=== PATIENT | male | born 1955 | race Caucasian/White ===

== ENCOUNTER 2020-08-11 17:14 | Inpatient (IN) ==
--- NOTE | 2020-08-11 17:22 | Internal Med History&Physical ---
HPI History of Present Illness Patient information: Note initiated : 08/11/20 at 5:16 pm Service Date, if different from initiated Date: [] Patient: Mark Madison 65 y/o M admitted on for acute renal failure. Chief Complaint: [] History of present illness: Mr. Madison is a 65 year old M 65-year-old male who was sent to the ED from the wound care clinic at [facility] for diabetic wounds because he was potentially systolics in 70s and 80s and he had a high blood sugar. Patient denied any pains or complaints states he feels essentially normal. Of note however, he have dementia and is poor historian. Work-up in the ER revealed acute kidney injury with creatinine 1.7. He had mild hyponatremia. He also elevated blood glucose of 469. But his beta hydroxy butyrate was negative. Received 2 L of IV fluid in ED. Not hypoxic. Case discussed with user interface developer Dr. Renee. [facility] having staffing issues and patient was transferred to [facility]. Review of Systems: Positive as above. Denies headache/fever/chills/nausea/vomiting/chest or abdominal pain/cough/dyspnea/diarrhea. Remaining 10 point review of system reviewed negative PFSH PFSH All Active Problems (Updated 02/24/17 @ 14:34 by [facility]) CHF (congestive heart failure), NYHA class III (Acute) Edema due to congestive heart failure (Acute) Medical History (Updated 02/24/17 @ 14:34 by [employer] [place]) CHF (congestive heart failure), NYHA class III (Acute) Edema due to congestive heart failure (Acute) Social History (Updated 08/11/20 @ 17:18 by Louis Schaefer DO) smoking status: Current every day smoker additional history: Past medical history: Diabetes Dementia Hypertension CAD with stent Peripheral arterial disease Depression Tobacco abuse Obesity Past surgical history: Left toe amputation Cholecystectomy C spine surgery Family: Father had heart disease. Brother with heart disease Social history: He is a chronic smoker 1 pack/day Lives with daughter. MEDS/ALLERGIES Home Medications and Allergies Home Medications Medication Instructions Recorded Confirmed Type aspirin [Adult Low Dose Aspirin EC] 81 mg PO DAILY 07/05/16 07/05/16 History furosemide 40 mg PO DAILY #5 tab 07/05/16 Rx insulin glargine [Lantus] 20 unit SQ HS 07/05/16 07/05/16 History Allergies Allergy/AdvReac Type Severity Reaction Status Date / Time sulfamethoxazole Allergy Severe LIP Verified 07/05/16 09:11 [From BACTRIM] SWELLING trimethoprim [From BACTRIM] Allergy Severe LIP Verified 07/05/16 09:11 SWELLING vancomycin [VANCOMYCIN] Allergy Severe Swollen Verified 07/05/16 09:11 Tongue morphine Allergy Intermediate Itching Verified 07/05/16 09:11 EXAM Constitutional Exam: General: Alert, Awake, No acute Distress Eyes/N/T: EOMI, PERRL, dry MM Head/Neck: neck supple, normocephalic atraumatic CV: RRR, No murmurs, normal s1/s2 Pulm: Clear b/l, no wheezing/rhonchi/rales Abd: soft, nontender, +BS x4 Ext: no clubbing/cyanosis/edema. Left foot in dressings from recent wound care dressing change Neuro: Alert, no focal deficits, moves all extremities, CN 2-12 grossly intact, symmetrical strength b/l upper/lower, sensations intact b/l upper/lower Skin: warm/dry A/P Narrative A/P Narrative: A: *ARLINE: likely BP meds and diuretics with increased fluid need from hyperglycemia *Hypotension: responded to IVF's *DM w/Hyperglycemia and foot wounds: -a1c *pseduohyponatremia: 2/2 above *Met acidosis: 2/2 above *CAD w/stent & PAD w/stent: *HTN: *Dementia: *Depression: *Tobacco abuse: P: -IVF, i/o -Nephrology consulted -UA -Hold BB/ACEI/diuretic meds for low BP & ARLINE -basal and SSI -cont ASA/Plavix/Statin -wound care -Smoking cessation counseling -pt/ot -ppx: Heparin Time Spent With Patient Time: Total time spent is greater than 50% in coordination of care (as documented) at patient's floor/unit and/or counseling patient:
[2020-08-11] MEDS ORDERED: DEXTROSE 50% 50 ML VIAL IV PRN (17:25)
[2020-08-11] MEDS ORDERED: SENNOSIDES 1 TABLET PO PRN (17:25)
[2020-08-11] MEDS ORDERED: MAGNESIUM SULFATE 2 GM/50 ML BAG IV PRN (17:25)
[2020-08-11] MEDS ORDERED: POTASSIUM CHLORIDE 20 MEQ TABLET PO PRN ×2 (17:25)
[2020-08-11] MEDS ORDERED: DEXTROSE 31 GM ORAL.SUSP PO PRN (17:25)
[2020-08-11] MEDS ORDERED: POTASSIUM CHLORIDE 40 MEQ in DEXTROSE 5% IN WATER 500 ML IV PRN (17:25)
[2020-08-11] MEDS ORDERED: ONDANSETRON 4 MG/2 ML VIAL IV PRN (17:25)
[2020-08-11] MEDS ORDERED: IPRATROPIUM/ALBUTEROL 3 ML AMPUL.NEB NEB PRN (17:25)
[2020-08-11] MEDS ORDERED: ACETAMINOPHEN 325 MG TABLET PO PRN (17:25)
[2020-08-11] MEDS ORDERED: LACTATED RINGERS 1,000 ML IV SCH (17:30)
--- NOTE | 2020-08-11 19:56 | Nephrology Procedure Note ---
Procedure Note Patient information: Note initiated : 08/11/20 at 7:52 pm Service Date, if different from initiated Date: [] Patient: Mark Madison 65 y/o M admitted on 08/11/20 for acute renal failure. Chief Complaint: [Referred from wound care to [facility] ED then to [facility] ICU for ARF] Patient is a 65-year-old gentleman with with left foot diabetic wound that is being cared for by wound care. He reported to the staff that for the past 1 to 2 weeks his blood sugars have been running over 400. His blood pressure was ar ound 100/60 he was not diaphoretic not complaining of chest pain not febrile but because of the lowish blood pressure he was sent to [facility] emergency department for further evaluation. Venous blood gas pH 7.27 PCO2 39 PO2 60 total CO2 18 Sodium 129 potassium 4.3 chloride 94 CO2 18 anion gap 17 Glucose 469 BUN 34 creatinine is 3.7 Calcium 10.1 total bilirubin 0.2 AST 13 ALT 13 alk phos 121 total protein 7.0 albumin 4.1 Beta hydroxybutyrate 0.13 White count 10,100 eosinophils 1.9% Hemoglobin 12.9 hematocrit 39% Platelet count 164,000 Urinalysis had a specific gravity of 1.029, negative protein, 4+ glucose, negative ketones, negative dipstick, no cellular casts Review of prior labs show a creatinine of 1.0 17 days prior to admission tonight. At [facility] emergency department patient received a liter of IV fluids and 15 units of insulin subcutaneously. Initial blood pressure was 109/60 with a pulse of 97 and O2 sat of 97% Medications include metoprolol succinate 25 mg every morning Lantus insulin 15 units daily Lipitor 20 mg at bedtime NovoLog sliding scale Bactrim DS 1 p.o. daily starting on 07/24/2020 Lisinopril 5 mg every morning Aspirin 81 mg, Lovenox 40 mg subcu, clopidogrel 75 mg nightly Given the above it is my believe this patient has acute renal failure from a combination of mild hypotension, lisinopril, and the straw that broke the cam el's back was Bactrim DS. Uncontrolled hyperglycemia would lead to ECF volume contraction by an osmotic diuresis Hyponatremia is in response to hyperglycemia to maintain osmolarity There is no evidence of diabetic ketoacidosis. The mild anion gap acidosis is probably related to either increase lactate production or acute renal failure or the combination of both
[2020-08-11] MEDS: INSULIN LISPRO 1 UNIT/0.01 ML UNIT SQ SCH (20:17)
--- NOTE | 2020-08-11 20:17 | Nephrology Consult Note ---
HPI Data of Consult Primary Care Provider: Ritesh Flor Consult Narrative Patient Information: Note initiated : 08/11/20 at 8:17 pm Service Date, if different from initiated Date: [] Patient: Mark Madison 65 y/o M admitted on 08/11/20 for acute renal failure. Chief Complaint: [ARF] cc:: CC: Louis Schaefer Note initiated : 08/11/20 at 7:52 pm Service Date, if different from initiated Date: [] Patient: Mark Madison 65 y/o M admitted on 08/11/20 for acute renal failure. Chief Complaint: [Referred from wound care to [facility] ED then to [facility] ICU for ARF] Patient is a 65-year-old gentleman with with left foot diabetic wound that is being cared for by wound care. He reported to the staff that for the past 1 to 2 weeks his blood sugars have been running over 400. His blood pressure was around 100/60 he was not diaphoretic not complaining of chest pain not febrile but because of the lowish blood pressure he was sent to [facility] emergency department for further evaluation. Venous blood gas pH 7.27 PCO2 39 PO2 60 total CO2 18 Sodium 129 potassium 4.3 chloride 94 CO2 18 anion gap 17 Glucose 469 BUN 34 creatinine is 3.7 Calcium 10.1 total bilirubin 0.2 AST 13 ALT 13 alk phos 121 total protein 7.0 albumin 4.1 Beta hydroxybutyrate 0.13 White count 10,100 eosinophils 1.9% Hemoglobin 12.9 hematocrit 39% Platelet count 164,000 Urinalysis had a specific gravity of 1.029, negative protein, 4+ glucose, negative ketones, negative dipstick, no cellular casts Review of prior labs show a creatinine of 1.0 17 days prior to admission tonight. At [facility] emergency department patient received a liter of IV fluids and 15 units of insulin subcutaneously. Initial blood pressure was 109/60 with a pulse of 97 and O2 sat of 97% Medications include metoprolol succinate 25 mg every morning Lantus insulin 15 units daily Lipitor 20 mg at bedtime NovoLog sliding scale Bactrim DS 1 p.o. daily starting on 07/24/2020 Lisinopril 5 mg every morning Aspirin 81 mg, Lovenox 40 mg subcu, clopidogrel 75 mg nightly Given the above it is my believe this patient has acute renal failure from a combination of mild hypotension, lisinopril, and the straw that broke the camel's back was Bactrim DS. Uncontrolled hyperglycemia would lead to ECF volume contraction by an osmotic diuresis Hyponatremia is in response to hyperglycemia to maintain osmolarity There is no evidence of diabetic ketoacidosis. The mild anion gap acidosis is probably related to either increase lactate production or acute renal failure or the combination of both Review of Systems ROS unobtainable: due to mental status Constitutional Constitutional: Present as per HPI, lethargy and weakness EENT Eyes: Present as per HPI and decreased night vision Ears: Present as per HPI and decreased hearing Nose, mouth and throat: Present headache(s) and post-nasal drip Cardiovascular Cardiovascular: Present as per HPI and syncope; Absent chest pain Respiratory Respiratory: Present as per HPI, cough, chest congestion and change in phlegm color (yellow) Gastrointestinal Gastrointestinal: Present as per HPI, excessive flatus, loose stools and nausea Musculoskeletal Musculoskeletal: Present atrophy and numbness Integumentary Integumentary: Present as per HPI and sores; Absent rash and jaundice Neurological Neurological: Present as per HPI, abnormal speech (slow), confusion, memory loss, numbness and weakness; Absent focal weakness Psychiatric Psychiatric: Present as per HPI and confusion Hematologic/Lymphatic Hematologic/Lymphatic: Present easy bruising Allergic/Immunologic Allergic/Immunologic: Present as per HPI PFSH PFSH All Active Problems (Updated 08/11/20 @ 21:04 by Tye Renee MD) DM (diabetes mellitus) type II uncontrolled, periph vascular disorder (Chronic) Acute prerenal azotemia (Acute) CHF (congestive heart failure), NYHA class III (Acute) Edema due to congestive heart failure (Acute) Medical History (Updated 08/11/20 @ 21:04 by Tye Renee MD) CHF (congestive heart failure), NYHA class III (Acute) Edema due to congestive heart failure (Acute) Social History (Updated 08/11/20 @ 17:18 by Louis Schaefer DO) smoking status: Current every day smoker additional history: Past medical history: Diabetes Dementia Hypertension CAD with stent Peripheral arterial disease Depression Tobacco abuse Obesity Past surgical history: Left toe amputation Cholecystectomy C spine surgery Family: Father had heart disease. Brother with heart disease Social history: He is a chronic smoker 1 pack/day Lives with daughter. MEDS/ALLERGIES Home Medications and Allergies Home Medications Medication Instructions Recorded Confirmed Type aspirin [Adult Low Dose Aspirin EC] 81 mg PO DAILY 07/05/16 07/05/16 History furosemide 40 mg PO DAILY #5 tab 07/05/16 Rx insulin glargine [Lantus] 20 unit SQ HS 07/05/16 07/05/16 History Allergies Allergy/AdvReac Type Severity Reaction Status Date / Time sulfamethoxazole Allergy Severe LIP Verified 07/05/16 09:11 [From BACTRIM] SWELLING trimethoprim [From BACTRIM] Allergy Severe LIP Verified 07/05/16 09:11 SWELLING vancomycin [VANCOMYCIN] Allergy Severe Swollen Verified 07/05/16 09:11 Tongue morphine Allergy Intermediate Itching Verified 07/05/16 09:11 Physical Examination Vital Signs Vital signs: Temp Pulse Resp BP Pulse Ox 35.9 C L 81 17 141/80 99 08/11/20 19:29 08/11/20 19:31 08/11/20 19:31 08/11/20 19:31 08/11/20 19:31 General Appearance General appearance: obese, chronically ill and fatigue EENT EENT: ATNC, PERRL, mucous membranes dry and hearing diminished Neck Neck: no JVD, no carotid bruit and supple Respiratory Respiratory: no kyphosis, wheezing (expiratory), course breath sounds and rhonchi Cardiovascular Cardiology: no murmurs, no rub, no gallops, edema, regular rhythm, normal S1 and normal S2 Gastrointestinal Gastrointestinal: normoactive bowel sounds, no guarding and distended Integumentary Integumentary: cool/clammy and ecchymotic Neurologic Neurologic: no focal deficit, no asterixis, confused, disoriented, strength 5/5 (diffuse weakness), CN 3-12 intact and upper extremity weakness Musculoskeletal Musculoskeletal: deformities (amp left great toe), no cyanosis, no clubbing and decreased ROM Psychiatric Psychiatric: depressed A/P Assessment and plan (1) Acute prerenal azotemia: Status: Acute Comment: Mid -July 2020 SCr 1.0 mg/dl. ARF with SCr 3's in setting of lisinopril 5 mg qD and 2 week course of Bactrim DS (despite allergy warning) starting mid July 2020 leading to decreased autoregulation of renal blood flow, decreased tubular secretion of Creatinine (triamterene effect) and hypotension (albeit mild) (2) DM (diabetes mellitus) type II uncontrolled, periph vascular disorder: Status: Chronic Comment: Sadly, this patient has NO IDEA of his insulin Type, dosing, blood sugar patters and relies on his daughter to adjust, dose insulin and determine glucose levels. Narrative A/P Narrative: 1. No NSAIDs 2. Volume expand done with NS at OSH, appears hemodynamically improved. 3. Suspect acute pre-renal azotemia Check FeNa, urine eos, urine protein/creatinine ratio and urine uric acid/creatinine ratio. No NSAIDs, ACEi or ARB, Bactrim Trend labs Anticipate renal recovery in 24-72 hours. 4. DM Could easily double lanus to 30 units qHS 5 units humalog for mealtime coverage plus 0-10 units of humalog aC and qHS for correction factor based on BS. 5. Pseudohyponatremia Should correct with control of BS. 6. Wound care Follow up with his putpatient wound care facility 7. 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
[2020-08-11] MEDS: 0.9 % SODIUM CHLORIDE 10 ML SYRINGE IV SCH (20:18)
[2020-08-11] MEDS: LACTATED RINGERS 1,000 ML IV SCH (20:18)
[2020-08-11 22:21] LABS: Appearance,Urine CLEAR (Clear); Bilirubin,Urine Negative (Negative); Color,Urine YELLOW; Culture Indicated,Urine No; Glucose,Urine (UA) >=500 mg/dL (Negative); Ketones,Urine Negative (Negative); Leukocyte Esterase,Urine Negative /ug (Negative); Mucus,Urine FEW /hpf; Nitrate,Urine Negative (Negative); Protein,Urine Negative (Negative); Urine Blood Negative (Negative); Urine Hyaline Cast 7 /lph (0-2); Urine RBC 0 /hpf (0-1); Urine Squamous Epithelial Cell 0 /hpf (0-4); Urine WBC 1 /hpf (0-4); Urobilinogen,Urine Negative
[2020-08-11 22:38] LABS: Uric Acid,Urine Random 14.2 mg/dL (37.0-92.0)
[2020-08-11] MEDS: HEPARIN 5,000 UNIT/ML VIAL SQ SCH (22:40)
[2020-08-11] MEDS: DOCUSATE SODIUM 100 MG CAPSULE PO SCH (22:41)
[2020-08-12] MEDS: INSULIN LISPRO 1 UNIT/0.01 ML UNIT SQ SCH ×6 (04:24→20:20)
[2020-08-12] MEDS: 0.9 % SODIUM CHLORIDE 10 ML SYRINGE IV SCH ×3 (05:56→20:17)
[2020-08-12 06:46] LABS: Estimated Average Glucose(eAG) 381 mg/dL; Hemoglobin A1C 14.9 % Hgb (4.0-6.0)
[2020-08-12 07:08] LABS: ALT/SGPT 12 U/L (<40); AST/SGOT 15 U/L (<40); Albumin 3.3 gm/dL (3.2-5.2); Albumin/Globulin Ratio 1.3 (1.0-2.3); Alkaline Phosphatase 87 U/L (39-117); Bilirubin,Direct < 0.2 mg/dL (<0.3); Bilirubin,Total 0.2 mg/dL (0.1-1.0); Blood Urea Nitrogen 21 mg/dL (8-23); Calcium 8.9 mg/dL (8.6-10.4); Carbon Dioxide 19 mmol/L (22-30); Chloride 110 mmol/L (96-108); Globulin 2.6 gm/dL (2.2-3.7); Glomerular Filtration Rate 41; Glucose 129 mg/dL (70-105); Lactate Dehydrogenase 149 U/L (135-225); Phosphorous 2.6 mg/dL (2.5-4.5); Triglycerides 152 mg/dL (<150); Uric Acid 6.5 mg/dL (2.5-8.0)
--- NOTE | 2020-08-12 07:28 | Internal Med Progress Note ---
SUBJECTIVE Subjective Patient information: Note initiated : 08/12/20 at 7:24 am Service Date, if different from initiated Date: [] Patient: Mark Madison 65 y/o M admitted on 08/11/20 for acute renal failure. Chief Complaint: [] Interval history: History of present illness: Mr. Madison is a 65 year old M 65-year-old male who was sent to the ED from the wound care clinic at [facility] for diabetic wounds because he was potentially systolics in 70s and 80s and he had a high blood sugar. Patient denied any pains or complaints states he feels es sentially normal. Of note however, he have dementia and is poor historian. Work-up in the ER revealed acute kidney injury with creatinine 1.7. He had mild hyponatremia. He also elevated blood glucose of 469. But his beta hydroxy butyrate was negative. Received 2 L of IV fluid in ED. Not hypoxic. Case discussed with steel sampler Dr. Renee. [facility] having staffing issues and patient was transferred to [facility]. 08/12 Slept well. No overnight events or new complaints. Creatinine same as yesterday. Was incontinent last night refused Luis. Discussed with the patient again this morning the need for Luis. Nursing clarifying home medications. Review of Systems: denies headache/fever/chills/nausea/vomiting/chest or abdominal pain/cough/dyspnea/diarrhea. Otherwise see above. Constitutional Vitals: Vital Signs Temp Pulse Resp BP Pulse Ox 98.1 F 92 H 20 99/65 98 08/12/20 04:02 08/12/20 04:02 08/12/20 04:02 08/12/20 04:02 08/12/20 04:02 Period Temp Pulse Resp BP Sys/Daryb Pulse Ox Last 24 Hr 96.7 F-98.7 F 81-94 16-21 90-164/50-113 95-100 Intake and Output 08/11/20 08/12/20 08/12/20 21:59 05:59 13:59 Intake Total 120 120 Output Total 625 1 Balance -505 119 Weight 70.579 kg 70.579 kg Intake & Output: Intake & Output 08/11/20 08/12/20 08/12/20 21:59 05:59 13:59 Intake Total 120 120 Output Total 625 1 Balance -505 119 Weight 70.579 kg 70.579 kg Intake: Oral 120 120 Output: Void Amount 625 # of times incontinent of urine 1 Other: Meal [place],crackers,peaches,juice Percent of Meal Consumed 100% Urine Appearance Clear Urine Color Dark Yellow Urine Odor Normal # of times incontinent of 1 Bowels Exam: General: Alert, Awake, No acute Distress Eyes/N/T: EOMI, Head/Neck: neck supple, CV: RRR, No murmurs, normal s1/s2 Pulm: Clear b/l, no wheezing/rhonchi/rales Abd: soft, nontender, +BS x4 Ext: no clubbing/cyanosis/edema. Left foot in dressings from recent wound care dressing change Neuro: Alert, no focal deficits, moves all extremities, Skin: warm/dry OBJ DATA Labs CBC & Chem 7: 08/12/20 05:42 08/12/20 05:42 Labs: Abnormal Lab Results 08/12/20 08/12/20 08/11/20 05:42 05:42 21:20 Chloride 110 H Carbon Dioxide 19 L Creatinine 1.7 H Glucose 129 H Hemoglobin A1c 14.9 H Triglycerides 152 H Urine Glucose (UA) Hyaline Casts Urine Mucus Ur Random Uric Acid 14.2 L 08/11/20 19:55 Chloride Carbon Dioxide Creatinine Glucose Hemoglobin A1c Triglycerides Urine Glucose (UA) >=500 A Hyaline Casts 7 H Urine Mucus Few A Ur Random Uric Acid Meds: Medications Acetaminophen (Tylenol) 650 mg PO Q6HP PRN PRN Reason: PAIN/FEVER > 101 Albuterol/Ipratropium (Duoneb) 3 ml NEB Q4HP PRN PRN Reason: Shortness Of Breath Dextrose (Dextrose 50%) 0 ml IV UD PRN PRN Reason: Hypoglycemia Diagnostic Test (Pha) (Accu-Chek) 1 each FS Q4 [facility] Last Admin: 08/12/20 04:20 Dose: 1 each Documented by: Docusate Sodium (Colace) 100 mg PO BID [facility] Last Admin: 08/11/20 22:41 Dose: 100 mg Documented by: Glucose (Insta-Glucose) 15 gm PO PRN PRN PRN Reason: Hypoglycemia Heparin Sodium (Porcine) (Heparin) 5,000 unit SQ Q12 [facility] Last Admin: 08/11/20 22:40 Dose: 5,000 unit Documented by: Potassium Chloride 40 meq/ (Dextrose) 520 mls @ 130 mls/hr IV UD PRN PRN Reason: Potassium < 3 Magnesium Sulfate (Magnesium Sulfate) 2 gm in 50 mls @ 50 mls/hr IV UD PRN PRN Reason: Magnesium </= 1.6 Lactated Ringer's (Lactated Ringers) 1,000 mls @ 83 mls/hr IV .Q12H3M [facility] Stop: 08/12/20 19:31 Last Admin: 08/11/20 20:18 Dose: 83 mls/hr Documented by: Insulin Human Lispro (Humalog) 0 unit SQ Q4 SATHYA; Protocol Last Admin: 08/12/20 04:24 Dose: 2 units Documented by: Ondansetron HCl (Zofran) 4 mg IV Q4HP PRN PRN Reason: Nausea And Vomiting Potassium Chloride (Kdur) 40 meq PO UD PRN PRN Reason: Potssium is 3-3.5 Potassium Chloride (Kdur) 40 meq PO UD PRN PRN Reason: Potassium < 3 Senna (Senokot) 2 tab PO DAILYP PRN PRN Reason: Constipation Sodium Chloride (Saline Flush) 10 ml IV Q8 [facility] Last Admin: 08/12/20 05:56 Dose: Not Given Documented by: A/P Narrative A/P Narrative: A: *ARLINE: likely BP meds and diuretics with increased fluid need from hyperglycemia -1.7<1.7 *Hypotension: responded to IVF's *DM w/Hyperglycemia and foot wounds & neuropathy: -a1c 14.9 *pseduohyponatremia: 2/2 above *Met acidosis: 2/2 above *CAD w/stent & PAD w/stent: *HTN: *Dementia: *Depression: *Tobacco abuse: P: -IVF, i/o -Nephrology consulted -Hold BB/ACEI/diuretic meds for low BP & ARLINE -basal (titrate) and SSI -cont ASA/Plavix/Statin -wound care -Smoking cessation counseling -pt/ot -ppx: Heparin Time Spent With Patient Time: Total time spent is greater than 50% in coordination of care (as documented) at patient's floor/unit and/or counseling patient: QUALITY Stroke Symptom Onset Unknown: No VTE Deep Vein Thrombosis/Pulmonary Embolism Present on Admission: No
[2020-08-12] MEDS: DOCUSATE SODIUM 100 MG CAPSULE PO SCH ×2 (08:39→20:17)
[2020-08-12] MEDS: GABAPENTIN 300 MG CAPSULE PO SCH ×2 (08:39→20:16)
[2020-08-12] MEDS: SERTRALINE 100 MG TABLET PO SCH (08:39)
[2020-08-12 09:00] LABS: Basophils # (Auto) 0.07 K/mcL (0.00-0.20); Basophils % (Auto) 0.8 % (0.0-2.0); Eosinophils # (Auto) 0.19 K/mcL (0.00-0.70); Eosinophils % (Auto) 2.3 % (0.0-7.0); Hemoglobin 11.5 g/dL (13.5-16.5); Lymphocytes # (Auto) 1.63 K/mcL (1.50-4.80); Lymphocytes % (Auto) 19.7 % (15.0-49.0); Mean Cell Volume 88.2 fL (80.0-100.0); Mean Corpuscular HGB Conc 32.9 g/dL (31.0-36.0); Mean Platelet Volume 11.7 fL (7.4-10.4); Monocytes # (Auto) 0.67 K/mcL (0.10-0.90); Monocytes % (Auto) 8.1 % (1.0-12.0); Neutrophils % (Auto) 69.1 % (38.0-78.0); Platelet Count 136 K/mcL (140-440); RBC 3.97 M/mcL (4.50-5.90); WBC 8.3 K/mcL (4.5-11.0)
[2020-08-12] MEDS: LACTATED RINGERS 1,000 ML IV SCH (09:27)
--- NOTE | 2020-08-12 10:18 | Ultrasound Report ---
History: Acute renal failure FINDINGS: The right kidney measures 4.5 x 5.3 x 10.6 cm and the left measures 4.2 x 4.5 x 10.9 cm. The cortex is normal in thickness and echogenicity bilaterally. There is no mass, cyst, calculus or hydronephrosis. Doppler shows flow of urine through both ureters into the bladder. The urinary bladder is normally distended and appears normal. The bladder contained 622 cc of urine. He is unable to voluntarily void. IMPRESSION: Anatomically normal kidneys Difficulty urinating Interpreted and Authenticated by: Jorge Sotomayor 08/12/20
[2020-08-12] MEDS: ASPIRIN 81 MG TAB.CHEW PO SCH (10:54)
[2020-08-12] MEDS: CLOPIDOGREL 75 MG TABLET PO SCH (10:54)
[2020-08-12] MEDS: HEPARIN 5,000 UNIT/ML VIAL SQ SCH ×2 (10:54→20:15)
[2020-08-12] MEDS: INSULIN GLARGINE, HUMAN 1 UNIT/0.01 ML SQ SCH (10:57)
--- NOTE | 2020-08-12 18:39 | Nephrology Progress Note ---
SUBJECTIVE Subjective Patient information: Note initiated : 08/12/20 at 6:37 pm Service Date, if different from initiated Date: [] Patient: Mark Madison 65 y/o M admitted on 08/11/20 for acute renal failure. Chief Complaint: [ARF, dehydration and BS >400mg/dl] Interval history: After hydration overnight and discontinuation of what I believe the offending medications were lisinopril and Bactrim as an outpatient, patient has had a substantial improvement in his GFR and his mental status is much improved. Team eat a good breakfast, and should be ready for discharge within 24 to 48 hours in my opinion. Laboratory Tests 08/11/20 08/11/20 08/11/20 21:20 21:20 21:20 WBC Hgb Hct MCV Plt Count Eos % (Auto) Sodium Potassium Chloride Carbon Dioxide BUN Creatinine GFR Calculation Glucose Hemoglobin A1c Uric Acid Calcium Phosphorus Magnesium Urine Eosinophils TNP Ur Random Creatinine 55.9 U Random Total Protein Ur Random Sodium 47 Ur Random Uric Acid 14.2 L 08/11/20 08/12/20 08/12/20 21:20 05:42 05:42 WBC 8.3 Hgb 11.5 L Hct 35.0 L MCV 88.2 Plt Count 136 L Eos % (Auto) 2.3 Sodium 139 Potassium 4.2 Chloride 110 H Carbon Dioxide 19 L BUN 21 Creatinine 1.7 H GFR Calculation 41 Glucose 129 H Hemoglobin A1c 14.9 Uric Acid 6.5 Calcium 8.9 Phosphorus 2.6 Magnesium 1.7 Urine Eosinophils Ur Random Creatinine U Random Total Protein 10 Ur Random Sodium Ur Random Uric Acid Renal U/S with increased bladder vol ~600 cc but o/w unremarkable. Constitutional Vitals: Vital Signs Temp Pulse Resp BP Pulse Ox 37.1 C 92 H 14 146/76 99 08/12/20 16:00 08/12/20 04:02 08/12/20 16:00 08/12/20 16:00 08/12/20 16:00 Period Temp Pulse Resp BP Sys/Darby Pulse Ox Last 24 Hr 35.9 C-37.1 C 81-94 14-21 90-164/50-113 95-100 Intake and Output 08/12/20 08/12/20 08/12/20 05:59 13:59 21:59 Intake Total 120 1360 Output Total 1 425 Balance 119 935 Weight 70.579 kg 70.579 kg Patient Weight 08/13/20 05:59 Weight 70.579 kg Intake & Output: Intake & Output 08/12/20 08/12/20 08/12/20 05:59 13:59 21:59 Intake Total 120 1360 Output Total 1 425 Balance 119 935 Weight 70.579 kg 70.579 kg Intake: IV 1000 Lactated Ringers 1,000 ml @ 83 1000 mls/hr IV .[id number] SATHYA Rx#: [id number] Oral 120 360 Output: Void Amount 425 # of times incontinent of urine 1 Other: Meal Lunch Dinner Percent of Meal Consumed 50% 100% Feeding Ability Independent Independent Urine Appearance Clear Clear Urine Color Bright Yellow Bright Yellow Dark Yellow Urine Odor Normal Normal # of times incontinent of 1 Bowels General appearance: average body habitus, cooperative, disheveled and no acute distress Head Head exam: Present atraumatic and normocephalic Eye Eye exam: Present EOMI and PERRL; Absent nystagmus and scleral icterus Pupils: Present PERRL ENT ENT exam: Present mucous membranes dry Neck Neck exam: Present full ROM; Absent meningismus Respiratory Respiratory exam: Present normal respiratory exam and rhonchi Cardiovascular Cardiovascular exam: Present normal rate and rhythm, RRR, +S1 and +S2; Absent gallop, JVD, rubs and +S3 GI/Abdominal GI/Abdominal exam: Present normal bowel sounds, soft and distended; Absent bruit Extremities Exam Extremities exam: Absent calf tenderness and pedal edema Back Exam Back exam: Absent CVA tenderness (L) and CVA tenderness (R) Neurological Exam Neurological exam: Present alert, CN II-XII intact and oriented X3 Psychiatric Psychiatric exam: Present flat affect Skin Skin exam: Present dry and intact Additional comments: Tobacco stained nails A/P Assessment and plan (1) Acute prerenal azotemia: Status: Acute Comment: Mid -July 2020 SCr 1.0 mg/dl. ARF with SCr 3's in setting of lisinopril 5 mg qD and 2 week course of Bactrim DS (despite allergy warning) starting mid July 2020 leading to decreased autoregulation of renal blood flow, decreased tubular secretion of Creatinine (triamterene effect) and hypotension (albeit mild) (2) DM (diabetes mellitus) type II uncontrolled, periph vascular disorder: Status: Chronic Comment: Sadly, this patient has NO IDEA of his insulin Type, dosing, blood sugar patters and relies on his daughter to adjust, dose insulin and determine glucose levels. Narrative A/P Narrative: * Plan on discharge tomorrow * Replace lisinopril with Flomax or doxazosin depending if his blood pressure is mildly elevated or markedly elevated after volume replacement * Needs intensive diabetic treatment working with his daughter * Need smoking cessation Time Spent With Patient Time: Total time spent is greater than 50% in coordination of care (as documented) at patient's floor/unit and/or counseling patient: Total time spent with greater than 50% in coordination of care (as documented) at patient's floor/unit and/or counseling patient:: Greater than 35 minutes
[2020-08-12] MEDS ORDERED: DOXAZOSIN 1 MG TABLET PO SCH (21:00)
[2020-08-12] MEDS ORDERED: risperiDONE 1 MG TABLET PO SCH (21:00)
[2020-08-12] MEDS ORDERED: ATORVASTATIN 20 MG TABLET PO SCH (21:00)
[2020-08-13] MEDS: 0.9 % SODIUM CHLORIDE 10 ML SYRINGE IV SCH ×2 (06:52→13:45)
--- NOTE | 2020-08-13 07:30 | Internal Med Progress Note ---
SUBJECTIVE Subjective Patient information: Note initiated : 08/13/20 at 7:27 am Service Date, if different from initiated Date: [] Patient: Mark Madison 65 y/o M admitted on 08/11/20 for acute renal failure. Chief Complaint: [] Interval history: History of present illness: Mr. Madison is a 65 year old M 65-year-old male who was sent to the ED from the wound care clinic at [facility] for diabetic wounds because he was potentially systolics in 70s and 80s and he had a high blood sugar. Patient denied any pains or complaints states he feels es sentially normal. Of note however, he have dementia and is poor historian. Work-up in the ER revealed acute kidney injury with creatinine 1.7. He had mild hyponatremia. He also elevated blood glucose of 469. But his beta hydroxy butyrate was negative. Received 2 L of IV fluid in ED. Not hypoxic. Case discussed with audit clerks supervisor Dr. Renee. [facility] having staffing issues and patient was transferred to [facility]. 08/12 Slept well. No overnight events or new complaints. Creatinine same as yesterday. Was incontinent last night refused Luis. Discussed with the patient again this morning the need for Luis. Nursing clarifying home medications. Review of Systems: denies headache/fever/chills/nausea/vomiting/chest or abdominal pain/diarrhea. Otherwise see above. Constitutional Vitals: Vital Signs Temp Pulse Resp BP Pulse Ox 98.4 F 92 H 17 97/60 96 08/13/20 04:01 08/12/20 04:02 08/13/20 06:01 08/13/20 06:01 08/13/20 06:01 Period Temp Pulse Resp BP Sys/Darby Pulse Ox Last 24 Hr 97.0 F-98.8 F 13-21 95-156/60-89 94-100 Intake and Output 08/12/20 08/13/20 08/13/20 21:59 05:59 13:59 Intake Total 240 360 Output Total 475 1325 Balance -235 -965 Weight 71.214 kg Intake & Output: Intake & Output 08/12/20 08/13/20 08/13/20 21:59 05:59 13:59 Intake Total 240 360 Output Total 475 1325 Balance -235 -965 Weight 71.214 kg Intake: Oral 240 360 Output: Urine Catheter Amount 475 1325 Other: Meal Dinner Percent of Meal Consumed 100% Feeding Ability Independent Urine Appearance Clear Clear Uretheral (Luis) Clear Clear Urine Color Bright Yellow Bright Yellow Uretheral (Luis) Bright Yellow Bright Yellow Urine Odor Normal Normal Uretheral (Luis) Normal Exam: General: Alert, Awake, No acute Distress Eyes/N/T: EOMI, Head/Neck: neck supple, CV: RRR, No murmurs, normal s1/s2 Pulm: Clear b/l, no wheezing/rhonchi/rales Abd: soft, nontender, +BS x4 Ext: no clubbing/cyanosis/edema. Left foot in dressings from recent wound care dressing change Neuro: Alert, no focal deficits, moves all extremities, Skin: warm/dry OBJ DATA Labs CBC & Chem 7: 08/12/20 05:42 08/13/20 05:41 Labs: Abnormal Lab Results 08/12/20 08/12/20 08/12/20 05:42 05:42 05:42 RBC 3.97 L Hgb 11.5 L Hct 35.0 L Plt Count 136 L MPV 11.7 H Chloride 110 H Carbon Dioxide 19 L Creatinine 1.7 H Glucose 129 H Hemoglobin A1c 14.9 H Triglycerides 152 H Urine Glucose (UA) Hyaline Casts Urine Mucus Ur Random Uric Acid 08/11/20 08/11/20 21:20 19:55 RBC Hgb Hct Plt Count MPV Chloride Carbon Dioxide Creatinine Glucose Hemoglobin A1c Triglycerides Urine Glucose (UA) >=500 A Hyaline Casts 7 H Urine Mucus Few A Ur Random Uric Acid 14.2 L Meds: Medications Acetaminophen (Tylenol) 650 mg PO Q6HP PRN PRN Reason: PAIN/FEVER > 101 Albuterol/Ipratropium (Duoneb) 3 ml NEB Q4HP PRN PRN Reason: Shortness Of Breath Aspirin (Aspirin) 81 mg PO DAILY [facility] Last Admin: 08/12/20 10:54 Dose: 81 mg Documented by: Atorvastatin Calcium (Lipitor) 20 mg PO QHS [facility] Last Admin: 08/12/20 20:16 Dose: 20 mg Documented by: Clopidogrel Bisulfate (Plavix) 75 mg PO QDAY [facility] Last Admin: 08/12/20 10:54 Dose: 75 mg Documented by: Dextrose (Dextrose 50%) 0 ml IV UD PRN PRN Reason: Hypoglycemia Diagnostic Test (Pha) (Accu-Chek) 1 each FS ACHS [facility] Last Admin: 08/12/20 20:16 Dose: 1 each Documented by: Docusate Sodium (Colace) 100 mg PO BID [facility] Last Admin: 08/12/20 20:17 Dose: Not Given Documented by: Doxazosin Mesylate (Cardura) 1 mg PO HS [facility] Last Admin: 08/12/20 21:08 Dose: 1 mg Documented by: Gabapentin (Neurontin) 300 mg PO BID [facility] Last Admin: 08/12/20 20:16 Dose: 300 mg Documented by: Glucose (Insta-Glucose) 15 gm PO PRN PRN PRN Reason: Hypoglycemia Heparin Sodium (Porcine) (Heparin) 5,000 unit SQ Q12 [facility] Last Admin: 08/12/20 20:15 Dose: 5,000 unit Documented by: Potassium Chloride 40 meq/ (Dextrose) 520 mls @ 130 mls/hr IV UD PRN PRN Reason: Potassium < 3 Magnesium Sulfate (Magnesium Sulfate) 2 gm in 50 mls @ 50 mls/hr IV UD PRN PRN Reason: Magnesium </= 1.6 Insulin Glargine (Lantus) 30 unit SQ DAILY [facility] Last Admin: 08/12/20 10:57 Dose: 30 units Documented by: Insulin Human Lispro (Humalog) 0 unit SQ [facility]; Protocol Last Admin: 08/12/20 20:20 Dose: 4 units Documented by: Ondansetron HCl (Zofran) 4 mg IV Q4HP PRN PRN Reason: Nausea And Vomiting Potassium Chloride (Kdur) 40 meq PO UD PRN PRN Reason: Potssium is 3-3.5 Potassium Chloride (Kdur) 40 meq PO UD PRN PRN Reason: Potassium < 3 Risperidone (Risperdal) 1 mg PO QHS [facility] Last Admin: 08/12/20 20:16 Dose: 1 mg Documented by: Senna (Senokot) 2 tab PO DAILYP PRN PRN Reason: Constipation Sertraline HCl (Zoloft) 150 mg PO QDAY [facility] Last Admin: 08/12/20 08:39 Dose: 150 mg Documented by: Sodium Chloride (Saline Flush) 10 ml IV Q8 [facility] Last Admin: 08/13/20 06:52 Dose: 10 ml Documented by: A/P Narrative A/P Narrative: A: *ARLINE: likely BP meds and diuretics with increased fluid need from hyperglycemia -1.7<1.7 *Hypotension: responded to IVF's *DM w/Hyperglycemia and foot wounds & neuropathy: -a1c 14.9 *pseduohyponatremia: 2/2 above *Met acidosis: 2/2 above *CAD w/stent & PAD w/stent: *HTN: *Dementia: *Depression: *Tobacco abuse: P: -s/p IVF -Nephrology consulted -Hold BB/ACEI/diuretic meds for low BP & ARLINE -BP med adjustment per nephrology -basal (increased from 20-30) and SSI -cont ASA/Plavix/Statin -wound care -Smoking cessation counseling -pt/ot -ppx: Heparin Time Spent With Patient Time: Total time spent is greater than 50% in coordination of care (as documented) at patient's floor/unit and/or counseling patient: QUALITY Stroke Symptom Onset Unknown: No VTE Deep Vein Thrombosis/Pulmonary Embolism Present on Admission: No
[2020-08-13] MEDS: INSULIN LISPRO 1 UNIT/0.01 ML UNIT SQ SCH ×2 (07:43→12:37)
[2020-08-13 08:19] LABS: ALT/SGPT 10 U/L (<40); AST/SGOT 15 U/L (<40); Albumin 3.2 gm/dL (3.2-5.2); Albumin/Globulin Ratio 1.1 (1.0-2.3); Alkaline Phosphatase 85 U/L (39-117); Bilirubin,Direct < 0.2 mg/dL (<0.3); Bilirubin,Total 0.3 mg/dL (0.1-1.0); Blood Urea Nitrogen 14 mg/dL (8-23); Calcium 9.2 mg/dL (8.6-10.4); Carbon Dioxide 20 mmol/L (22-30); Chloride 110 mmol/L (96-108); Globulin 2.9 gm/dL (2.2-3.7); Glomerular Filtration Rate 88; Glucose 141 mg/dL (70-105); Lactate Dehydrogenase 153 U/L (135-225); Phosphorous 2.4 mg/dL (2.5-4.5); Triglycerides 181 mg/dL (<150); Uric Acid 6.4 mg/dL (2.5-8.0)
--- NOTE | 2020-08-13 08:56 | Discharge Summary ---
Discharge Provider Provider Patient information: Note initiated : 08/13/20 at 8:54 am Service Date, if different from initiated Date: [] Patient: Mark Madison 65 y/o M admitted on 08/11/20 for acute renal failure. Chief Complaint: [] Date of admission: 08/11/20 19:17 Discharge date: 08/13/20 Primary care physician: Ritesh Flor Consults: 08/11/20 17:27 Consult to Physician [CONS] Routine Comment: Consulting Provider: Tye Renee Reason For Exam: Physician to Consult Discharge Meds Discharge Medications Home Medications atorvastatin 20 mg PO QHS 08/11/20 [History Confirmed 08/11/20 Last Taken Unknown] clopidogrel [Plavix] 75 mg PO QDAY 08/11/20 [History Confirmed 08/11/20 Last Taken Unknown] insulin aspart U-100 [Novolog U-100 Insulin aspart] See Protocol SUBCUT ACHS 08/11/20 [History Confirmed 08/12/20 Last Taken Unknown] gabapentin 300 mg PO BID 08/12/20 [History Confirmed 08/12/20 Last Taken Unknown] risperidone 1 mg PO QHS 08/12/20 [History Confirmed 08/12/20 Last Taken Unknown] sertraline 150 mg PO QDAY 08/12/20 [History Confirmed 08/12/20 Last Taken Unknown] Lantus Solostar U-100 Insulin 30 unit SUBCUT DAILY #3 ml 08/13/20 [Rx Last Taken Unknown] aspirin 81 mg PO DAILY #30 tab 08/13/20 [Rx Last Taken Unknown] doxazosin 1 mg PO HS #30 tab 08/13/20 [Rx Last Taken Unknown] metoprolol succinate 12.5 mg PO DAILY #10 tab 08/13/20 [Rx Last Taken Unknown] COURSE Hospital Course Hospital course: History of present illness: Mr. Madison is a 65 year old M 65-year-old male who was sent to the ED from the wound care clinic at [facility] for diabetic wounds because he was potentially systolics in 70s and 80s and he had a high blood sugar. Patient denied any pains or complaints states he feels esse ntially normal. Of note however, he have dementia and is poor historian. Work-up in the ER revealed acute kidney injury with creatinine 1.7. He had mild hyponatremia. He also elevated blood glucose of 469. But his beta hydroxy butyrate was negative. Received 2 L of IV fluid in ED. Not hypoxic. Case discussed with hydrometeorologist Dr. Renee. [facility] having staffing issues and patient was transferred to [facility]. 08/12 Slept well. No overnight events or new complaints. Creatinine same as yesterday. Was incontinent last night refused Luis. Discussed with the patient again this morning the need for Luis. Nursing clarifying home medications. A: *ARLINE: likely BP meds and diuretics with increased fluid need from hyperglycemia *Hypotension: responded to IVF's *DM w/Hyperglycemia and foot wounds & neuropathy: -a1c 14.9 *Met acidosis: 2/2 above *CAD w/stent & PAD w/stent: *HTN: *Dementia: *Depression: *Tobacco abuse: Discharge diagnosis: Acute kidney injury hypotension hyperglycemia Time Spent with Patient Time attestation: Total time spent providing and/or coordinating discharge services: Time spent: Greater than 30 minutes EXAM Constitutional Vitals: Temp Pulse Resp BP Pulse Ox 98 F 92 H 20 129/76 99 08/13/20 08:00 08/12/20 04:02 08/13/20 08:00 08/13/20 08:00 08/13/20 08:00 Discharge Data Data Completed and Pending Labs on day of discharge: Labs from last 24 hours 08/13/20 08/12/20 05:41 05:42 WBC 8.3 RBC 3.97 L Hgb 11.5 L Hct 35.0 L MCV 88.2 MCH 29.0 MCHC 32.9 RDW 14.0 Plt Count 136 L MPV 11.7 H Neut % (Auto) 69.1 Lymph % (Auto) 19.7 [place] % (Auto) 8.1 Eos % (Auto) 2.3 Baso % (Auto) 0.8 Lymph # (Auto) 1.63 [place] # (Auto) 0.67 Eos # (Auto) 0.19 Baso # (Auto) 0.07 Absolute Neutrophils 5.72 Sodium 139 Potassium 4.4 Chloride 110 H Carbon Dioxide 20 L Anion Gap 9.0 BUN 14 Creatinine 0.9 GFR Calculation 88 Glucose 141 H Uric Acid 6.4 Calcium 9.2 Phosphorus 2.4 L Magnesium 1.7 Total Bilirubin 0.3 Direct Bilirubin < 0.2 GGT 22 AST 15 ALT 10 Alkaline Phosphatase 85 Lactate Dehydrogenase 153 Total Protein 6.1 Albumin 3.2 Globulin 2.9 Albumin/Globulin Ratio 1.1 Triglycerides 181 H Discharge Plan Patient/Caregiver Discharge Instructions Activity: increase activity as tolerated Diet: Consistent Carbohydrate Prescriptions: New aspirin 81 mg Tablet,Chewable 81 mg PO DAILY Qty: 30 RF: 0 doxazosin 1 mg Tablet 1 mg PO HS Qty: 30 RF: 0 Continued atorvastatin 20 mg Tablet 20 mg PO QHS RF: 0 insulin aspart U-100 [Novolog U-100 Insulin aspart] 100 unit/mL Solution See Protocol unit SUBCUT ACHS RF: 0 clopidogrel [Plavix] 75 mg Tablet 75 mg PO QDAY RF: 0 gabapentin 300 mg Capsule 300 mg PO BID RF: 0 risperidone 1 mg Tablet 1 mg PO QHS RF: 0 sertraline 100 mg Tablet 150 mg PO QDAY RF: 0 Changed metoprolol succinate 25 mg Tablet Extended Release 24 Hr 12.5 mg PO DAILY Qty: 10 RF: 0 Lantus Solostar U-100 Insulin 100 unit/mL (3 mL) Insulin Pen 30 unit subcut DAILY Qty: 3 RF: 0 Discontinued aspirin 325 mg Tablet 325 mg PO QDAY RF: 0 lisinopril 5 mg Tablet 5 mg PO HS RF: 0 Follow Up Plan Patient Disposition: Home, Self-Care Rehab Potential: Undetermined Overall status at discharge: patient is not back to baseline Discharge Orders: Discharge Order (Routine); Ordered 08/13/20 Ordered By: Louis Schaefer [facility] VTE Deep Vein Thrombosis/Pulmonary Embolism Present on Admission: No
--- NOTE | 2020-08-13 09:10 | Nephrology Progress Note ---
SUBJECTIVE Subjective Patient information: Note initiated : 08/13/20 at 9:05 am Service Date, if different from initiated Date: [] Patient: Mark Madison 65 y/o M admitted on 08/11/20 for acute renal failure. Chief Complaint: [High glucose low blood pressure sent over from [facility] ER] This patient has a baseline creatinine of 1.0 he was on lisinopril 5 and finished a greater than 10-day course of Bactrim when he was noted to be weak and with a blood pressure around 100/60 in the wound care clinic at [facility] so he was sent over to the emergency department where he was noted to have serum creatinine newly elevated to the mid 3's. Sensate and have a unit that he was sent over to [facility] where he was treated with IV fluids discontinuation of the offending medications and enjoyed a improvement in his GFR and electrolytes. His lethargy and near obtundation improved as his blood sugar was lowered from 400 into the 100s. It is clear he has no clue how to take care of himself nor is he capable of doing that his daughter is helping out and he says she is responsible for me during out his medications and insulin and he has on his med list both Lantus and Humalog but this clearly has not prevented him from running blood sugars in excess of 400, developing an osmotic diuresis, becoming dehydrated and hypotensive, since he was on TMP-SMX and lisinopril he developed acute but readily reversible renal failure most likely prerenal in origin. His Luis will be removed and he'll be discharged home. I would not send him home on lisinopril but would recommend Hytrin/Cardura for treatment of his blood pressure and his BPH. Should not receive narcotics due to urinary retention. He should be referred to a urologist at some point for elective evaluation of urinary retention He should never receive Bactrim again. Laboratory Tests 08/13/20 05:41 Sodium 139 Potassium 4.4 Chloride 110 H Carbon Dioxide 20 L Anion Gap 9.0 BUN 14 Creatinine 0.9 GFR Calculation 88 Glucose 141 H Uric Acid 6.4 Calcium 9.2 Phosphorus 2.4 L Magnesium 1.7 Total Bilirubin 0.3 Direct Bilirubin < 0.2 GGT 22 AST 15 ALT 10 Alkaline Phosphatase 85 Lactate Dehydrogenase 153 Total Protein 6.1 Albumin 3.2 Globulin 2.9 Albumin/Globulin Ratio 1.1 Triglycerides 181 H Renal U/S Aug 2020: FINDINGS: The right kidney measures 4.5 x 5.3 x 10.6 cm and the left measures 4.2 x 4.5 x 10.9 cm. The cortex is normal in thickness and echogenicity bilaterally. There is no mass, cyst, calculus or hydronephrosis. Doppler shows flow of urine through both ureters into the bladder. The urinary bladder is normally distended and appears normal. The bladder contained 622 cc of urine. He is unable to voluntarily void. IMPRESSION: Anatomically normal kidneys Constitutional Vitals: Vital Signs Temp Pulse Resp BP Pulse Ox 36.6 C 92 H 20 129/76 99 08/13/20 08:00 08/12/20 04:02 08/13/20 08:00 08/13/20 08:00 08/13/20 08:00 Period Temp Pulse Resp BP Sys/Darby Pulse Ox Last 24 Hr 36.1 C-37.1 C 13-21 95-156/60-81 94-100 Intake and Output 08/12/20 08/13/20 08/13/20 21:59 05:59 13:59 Intake Total 240 360 240 Output Total 475 1325 175 Balance -235 -965 65 Weight 71.214 kg General appearance: average body habitus, cooperative, disheveled and no acute distress Head Head exam: Present atraumatic and normocephalic Eye Eye exam: Present EOMI and PERRL; Absent nystagmus and scleral icterus Pupils: Present PERRL ENT ENT exam: Present mucous membranes dry Neck Neck exam: Present full ROM; Absent meningismus Respiratory Respiratory exam: Present normal respiratory exam and rhonchi Cardiovascular Cardiovascular exam: Present normal rate and rhythm, RRR, +S1 and +S2; Absent gallop, JVD, rubs and +S3 GI/Abdominal GI/Abdominal exam: Present normal bowel sounds, soft and distended; Absent bruit Extremities Exam Extremities exam: Absent calf tenderness and pedal edema Back Exam Back exam: Absent CVA tenderness (L) and CVA tenderness (R) Neurological Exam Neurological exam: Present alert, CN II-XII intact and oriented X3 Psychiatric Psychiatric exam: Present flat affect Skin Skin exam: Present dry and intact Additional comments: Tobacco stained nails Luis still in place Intake & Output: Intake & Output 08/12/20 08/13/20 08/13/20 21:59 05:59 13:59 Intake Total 240 360 240 Output Total 475 1325 175 Balance -235 -965 65 Weight 71.214 kg Intake: Oral 240 360 240 Output: Urine Catheter Amount 475 1325 175 Other: Meal Dinner Breakfast Percent of Meal Consumed 100% 100% Feeding Ability Independent Independent Urine Appearance Clear Clear Clear Uretheral (Luis) Clear Clear Urine Color Bright Yellow Bright Yellow Dark Yellow Uretheral (Luis) Bright Yellow Bright Yellow Urine Odor Normal Normal Normal Uretheral (Luis) Normal A/P Narrative A/P Narrative: Assessment and plan (1) Acute prerenal azotemia: (2) DM (diabetes mellitus) type II uncontrolled, periph vascular disorder: Narrative A/P Narrative: Plan on discharge today Replace lisinopril with Flomax or doxazosin depending if his blood pressure is mildly elevated or markedly elevated after volume replacement Needs intensive diabetic treatment working with his daughter Need smoking cessation Urology outpatient evaluation. No narcotics or other Rx that will decrease bladder Fx like anticholinergic Rx Time Spent With Patient Time: Total time spent is greater than 50% in coordination of care (as documented) at patient's floor/unit and/or counseling patient: Total time spent with greater than 50% in coordination of care (as documented) at patient's floor/unit and/or counseling patient:: Greater than 35 minutes
[2020-08-13] MEDS ORDERED: FLU VACC QS2020-21(6MOS UP)/PF 60 MCG/0.5 ML SYRINGE IM ONE (10:00)
[2020-08-13] MEDS: HEPARIN 5,000 UNIT/ML VIAL SQ SCH (10:43)
[2020-08-13] MEDS: SERTRALINE 100 MG TABLET PO SCH (10:43)
[2020-08-13] MEDS: ASPIRIN 81 MG TAB.CHEW PO SCH (10:43)
[2020-08-13] MEDS: GABAPENTIN 300 MG CAPSULE PO SCH (10:43)
[2020-08-13] MEDS: INSULIN GLARGINE, HUMAN 1 UNIT/0.01 ML SQ SCH (10:44)
[2020-08-13] MEDS: CLOPIDOGREL 75 MG TABLET PO SCH (10:44)
[2020-08-13] MEDS: DOCUSATE SODIUM 100 MG CAPSULE PO SCH (10:44)
== END 2020-08-13 15:35 | disposition home or self-care (01) | DRG 683 ==
LOC: ICU 19:17
PROVIDERS: ADMIT Internal Medicine; ATTEND Internal Medicine